=== PATIENT | male | born 1950 | race Caucasian/White ===

== ENCOUNTER 2021-06-10 20:35 | Emergency (ER) | payer OTHER ==
[2021-06-10 22:11] LABS: Absolute Lymphocytes (CBC) 1.5 K/uL (0.7-4.9); Hematocrit 36.4 % (39.6-49.0); Lymphocytes % 12.9 % (15.3-44.8); MPV 8.1 fL (7.6-11.3); RBC Red Blood Cell Count 4.67 M/uL (4.33-5.43)
[2021-06-10 22:21] LABS: Potassium 3.7 mmol/L (3.5-5.1)
--- NOTE | 2021-06-10 22:59 | ER ---
Nurse's Notes [facility] Name: Marilyn Rios Age: 70 yrs Sex: Male : 1950 Arrival Date: 06/10/2021 Time: 20:39 Bed 28 Private MD: Diagnosis: Hall's palsy Presentation: 06/10 20:46 Chief complaint: EMS states: Called for patient with right sided facial droop that lp1 began about 1800; Denies any weakness to extremities. Coronavirus screen: At this time, the client does not indicate any symptoms associated with coronavirus-19. Ebola Screen: No symptoms or risks identified at this time. Initial Sepsis Screen: Does the patient meet any 2 criteria? No. Patient's initial sepsis screen is negative. Does the patient have a suspected source of infection? No. Patient's initial sepsis screen is negative. Risk Assessment: Do you want to hurt yourself or someone else? Patient reports no desire to harm self or others. Onset of symptoms was 1800. 20:46 Method Of Arrival: EMS: [facility] lp1 20:46 Acuity: GIDEON 3 lp1 20:51 Care prior to arrival: Glucose check: 224. lp1 Historical: - Allergies: 20:49 No Known Allergies; lp1 - Home Meds: 20:49 Lantus U-100 Insulin 100 unit/mL Sub-Q crtg 10 unit daily [Active]; atorvastatin 20 mg lp1 oral tab 1 tab once daily [Active]; amlodipine 5 mg tab 1 tab once daily [Active]; losartan-hydrochlorothiazide 100-25 mg oral tab 1 tab once daily [Active]; levothyroxine 175 mcg tab 1 tab once daily [Active]; - PMHx: 20:49 Diabetes mellitus; Hypertensive disorder; Hypothyroidism; lp1 - PSHx: 20:49 None; lp1 - Immunization history:: Adult Immunizations up to date. - Social history:: Smoking status: Patient denies any tobacco usage or history of. Screenin:52 Abuse screen: Denies threats or abuse. Nutritional screening: No deficits noted. lr4 Tuberculosis screening: No symptoms or risk factors identified. Fall Risk None identified. Assessment: 20:51 General: Appears in no apparent distress. comfortable, Behavior is calm, cooperative. lr4 Pain: Denies pain. Neuro: No deficits noted. Level of Consciousness is awake, alert, obeys commands, Oriented to person, place, time, situation, [facility] are equal bilaterally Moves all extremities. Gait is steady, Speech is normal, Facial droop on right, Reports R side facial droop. Cardiovascular: No deficits noted. Respiratory: No deficits noted. GI: No deficits noted. 23:09 Reassessment: Patient is alert, oriented x 3, equal unlabored respirations, skin lr4 warm/dry/pink. Patient states feeling better. Vital Signs: 20:46 BP 201 / 95; Pulse 106; Resp 18; Temp 98.2(O); Pulse Ox 100% on R/A; Weight 113.4 kg lp1 (R); Height 5 ft. 7 in. (170.18 cm); 22:14 BP 160 / 67; Pulse 81; Resp 20; Pulse Ox 100% on R/A; lr4 23:01 Pulse 81; Resp 18; Pulse Ox 98% ; lr4 20:46 Body Mass Index 39.16 (113.40 kg, 170.18 cm) lp1 ED Course: 20:39 Patient arrived in ED. mw2 20:49 Triage completed. lp1 20:49 Arm band placed on left wrist. lp1 20:51 Rhea Villaseñor RN is Primary Nurse. lr4 20:52 Patient has correct armband on for positive identification. Bed in low position. Call lr4 light in reach. Side rails up X 1. 20:52 No provider procedures requiring assistance completed. lr4 21:07 [facility] jr8 21:07 Gab Hernandez MD is Attending Physician. jr8 22:26 CT Head Brain wo Cont In Process Unspecified. EDMS 23:01 IV discontinued, intact, bleeding controlled, No redness/swelling at site. Pressure lr4 dressing applied. Administered Medications: 23:08 Drug: predniSONE 60 mg Route: PO; lr4 23:08 Follow up: Response: No adverse reaction lr4 Outcome: 20:52 Condition: stable lr4 22:58 Discharge ordered by . jr8 23:01 Discharged to home ambulatory. lr4 23:01 Discharge instructions given to patient. 23:09 Patient left the ED. lr4 Signatures: Dispatcher [employer] EDCO Kenia Guerrero RN RN lp1 Ken Miles PA PA jr8 Justo Andersen mw2 Rhea Villaseñor, RN RN lr4
--- NOTE | 2021-06-10 22:59 | EDPHYS ---
Physician Documentation [facility] Name: Marilyn Rios Age: 70 yrs Sex: Male : 1950 Arrival Date: 06/10/2021 Time: 20:39 Bed 28 Private MD: ED Physician Gab Hernandez HPI: 06/10 22:45 This 70 yrs old Male presents to ER via EMS with complaints of Facial Droop. jr8 22:45 Onset: The symptoms/episode began/occurred acutely, today. Associated signs and jr8 symptoms: The patient has no apparent associated signs or symptoms. Severity of symptoms: At their worst the symptoms were moderate in the emergency department the symptoms are unchanged. Patient's baseline: Neuro: alert and fully oriented, Motor: no deficits, Ambulation: walks without assistance, Speech: normal. Current symptoms: paralysis or paresis, that is moderate, Right face. The patient has not experienced similar symptoms in the past. The patient has not recently seen a physician. Patient stated for the past day or so felt that she is having an earache. Today started having odd sensation of the right side of her face and then noticed that it was drooping. Patient called EMS at that time. Patient currently with right-sided facial droop but denies any other focal deficits.. Historical: - Allergies: 20:49 No Known Allergies; lp1 - Home Meds: 20:49 Lantus U-100 Insulin 100 unit/mL Sub-Q crtg 10 unit daily [Active]; atorvastatin 20 mg lp1 oral tab 1 tab once daily [Active]; amlodipine 5 mg tab 1 tab once daily [Active]; losartan-hydrochlorothiazide 100-25 mg oral tab 1 tab once daily [Active]; levothyroxine 175 mcg tab 1 tab once daily [Active]; - PMHx: 20:49 Diabetes mellitus; Hypertensive disorder; Hypothyroidism; lp1 - PSHx: 20:49 None; lp1 - Immunization history:: Adult Immunizations up to date. - Social history:: Smoking status: Patient denies any tobacco usage or history of. ROS: 22:45 Eyes: Negative for injury, pain, redness, and discharge, ENT: Negative for injury, jr8 pain, and discharge, Neck: Negative for injury, pain, and swelling, Cardiovascular: Negative for chest pain, palpitations, and edema, Respiratory: Negative for shortness of breath, cough, wheezing, and pleuritic chest pain, Abdomen/GI: Negative for abdominal pain, nausea, vomiting, diarrhea, and constipation, Back: Negative for injury and pain, MS/Extremity: Negative for injury and deformity, Skin: Negative for injury, rash, and discoloration. 22:45 Neuro: Positive for weakness. Exam: 22:45 Eyes: Pupils equal round and reactive to light, extra-ocular motions intact. Lids and jr8 lashes normal. Conjunctiva and sclera are non-icteric and not injected. Cornea within normal limits. Periorbital areas with no swelling, redness, or edema. ENT: Nares patent. No nasal discharge, no septal abnormalities noted. Tympanic membranes are normal and external auditory canals are clear. Oropharynx with no redness, swelling, or masses, exudates, or evidence of obstruction, uvula midline. Mucous membranes moist. Neck: Trachea midline, no thyromegaly or masses palpated, and no cervical lymphadenopathy. Supple, full range of motion without nuchal rigidity, or vertebral point tenderness. No Meningismus. Cardiovascular: Regular rate and rhythm with a normal S1 and S2. No gallops, murmurs, or rubs. Normal PMI, no JVD. No pulse deficits. Respiratory: Lungs have equal breath sounds bilaterally, clear to auscultation and percussion. No rales, rhonchi or wheezes noted. No increased work of breathing, no retractions or nasal flaring. Abdomen/GI: Soft, non-tender, with normal bowel sounds. No distension or tympany. No guarding or rebound. No evidence of tenderness throughout. Back: No spinal tenderness. No costovertebral tenderness. Full range of motion. Skin: Warm, dry with normal turgor. Normal color with no rashes, no lesions, and no evidence of cellulitis. MS/ Extremity: Pulses equal, no cyanosis. Neurovascular intact. Full, normal range of motion. 22:45 Neuro: Orientation: to person, place, time \T\ situation. Mentation: is normal, Memory: is normal, Cranial nerves: CN I not tested, CN II- XII are normal as tested, visual flores are intact. extraocular movements are intact, facial droop noted on right, with forehead involved. decreased ocular muscle tone in the right eye, Cerebellar function: is grossly normal, Motor: moves all fours, strength is 5/5 in all extremities, Sensation: no obvious gross deficits, Gait: is steady, seizure activity, is not displayed by the patient, Abnormal movements: there are no abnormal movements. Vital Signs: 20:46 BP 201 / 95; Pulse 106; Resp 18; Temp 98.2(O); Pulse Ox 100% on R/A; Weight 113.4 kg lp1 (R); Height 5 ft. 7 in. (170.18 cm); 22:14 BP 160 / 67; Pulse 81; Resp 20; Pulse Ox 100% on R/A; lr4 23:01 Pulse 81; Resp 18; Pulse Ox 98% ; lr4 20:46 Body Mass Index 39.16 (113.40 kg, 170.18 cm) lp1 MDM: 21:09 Patient medically screened. jr8 22:57 Data reviewed: vital signs, nurses notes, lab test result(s), radiologic studies, CT jr8 scan. Data interpreted: Pulse oximetry: on room air is 100 %. Interpretation: normal. Counseling: I had a detailed discussion with the patient and/or guardian regarding: the historical points, exam findings, and any diagnostic results supporting the discharge/admit diagnosis, lab results, radiology results, the need for outpatient follow up, a family practitioner, a neurologist, to return to the emergency department if symptoms worsen or persist or if there are any questions or concerns that arise at home. ED course: Discussed with patient that she has mild inflammatory fluid of the right mastoid. Could be stimulus for this along with her diabetes. We will put her on antibiotics along with steroids. Need to have extremely tight control on her glucose for the time being. If she were to worsening point time to come back for further evaluation. Patient understands and is good with the plan at this time.. 06/10 21:08 Order name: CBC with Diff; Complete Time: 22: jr8 06/10 21:08 Order name: Basic Metabolic Panel; Complete Time: 22: jr8 06/10 21:07 Order name: CT Head Brain wo Cont jr8 06/10 21:08 Order name: IV; Complete Time: 21:37 jr8 Administered Medications: 23:08 Drug: predniSONE 60 mg Route: PO; lr4 23:08 Follow up: Response: No adverse reaction lr4 Disposition Summary: 06/10/21 22:58 Discharge Ordered Location: Home jr8 Problem: new jr8 Symptoms: have improved jr8 Condition: Stable jr8 Diagnosis - Hall's palsy jr8 Followup: jr8 - With: Private Physician - When: 1 week - Reason: Recheck today's complaints, Continuance of care, Re-evaluation by your physician Discharge Instructions: - Discharge Summary Sheet jr8 - Hall Palsy, Adult jr8 Forms: - Medication Reconciliation Form jr8 - Thank You Letter jr8 - Antibiotic Education jr8 - Prescription Opioid Use jr8 Prescriptions: - Augmentin 875-125 mg Oral Tablet - take 1 tablet by ORAL route every 12 hours for 10 days; 20 tablet; Refills: 0, jr8 Product Selection Permitted - Prednisone 20 mg Oral Tablet - take 3 tablets by ORAL route once daily for 6 days; 18 tablet; Refills: 0, jr8 Product Selection Permitted Addendum: 06/12/2021 05:30 Co-signature as Attending Physician, Gab Hernandez MD I agree with the assessment and c leo plan of care. Signatures: Dispatcher [employer] Gab Ortega MD MD cha Pena, Laura, RN RN lp1 Ken Miles PA PA jr8 Rhea Villaseñor RN RN lr4 Beti Chaudhary PA PA sb3
[2021-06-10] MEDS ORDERED: predniSONE 20 MG TAB ONE ×2 (23:06)
[2021-06-10 23:53] VITALS: TEMP 98.2
[2021-06-10 23:54] VITALS: BP 160/67
[2021-06-10 23:56] VITALS: O2SAT 98
--- NOTE | 2021-06-11 15:46 | RAD REPORT ---
EXAM DESCRIPTION: CT - Head Brain Wo Cont - 06/11/2021 6:32 am CLINICAL HISTORY: CURRAN'S PALSY COMPARISON: None Available. TECHNIQUE: Multiple helical axial tomographic images were obtained of the head without intravenous c ontrast. This exam was performed according to our departmental dose-optimization program, which inclu lesa automated exposure control, adjustment of the mA and/or kV according to patient size and/or use o f iterative reconstruction technique. FINDINGS: Generalized brain volume loss is demonstrated. There is patchy hypoattenuation in the cere bral white matter suggesting chronic microvascular ischemic changes. There is no acute intracranial h emorrhage. No mass. No midline shift. No ventriculomegaly. Canales-white matter differentiation is maint ained. Paranasal sinuses are clear. There is partial opacification of the right mastoid air cells and middle ear space. Orbits and orbital contents are unremarkable. Osseous structures are unremarkable. Surrounding soft tissues are unremarkable. IMPRESSION: 1. No acute intracranial process. 2. Findings suggestive of chronic microvascular ischemic changes. 3. Infectious/inflammatory fluid within the right mastoid air cells and middle ear space. Electronically signed by: Jett Monterroso MD 06/10/2021 10:41 PM CDT Due to temporary technical issues with the PACS/Fluency reporting system, reports are being signed by the in house radiologists without review as a courtesy to insure prompt reporting. The interpreting radiologist is fully responsible for the content of the report.
== END 2021-06-10 23:09 | disposition home or self-care (01) ==
LOC: ER 20:35
DX: G51.0 Bell's palsy (principal); E11.9 Type 2 diabetes mellitus without complications; I10 Essential (primary) hypertension; E03.9 Hypothyroidism, unspecified; Z79.4 Long term (current) use of insulin
CPT/HCPCS: 36415; 70450; 80048; 85025; 99283; J7512